=== PATIENT | female | born 1945 | race Hispanic/Latino ===

== ENCOUNTER 2020-01-29 09:58 | Emergency (ER) | payer MEDICARE, MEDICAID ==
[~2020-01-29] VITALS: Ht 154.9 cm; Wt 64.5 kg
[~2020-01-29 09:58] MED LIST: ADLT ASA LOW81 MG PO; CALCIUM600 M1 PO; CIPROFLOXACN500 MG PO; GLUCOPHAGE1000 MG; LISINOP/HCTZ1 TA2 PO; MEVACOR20 MG PO; NORVASC10 MG PO; ROBITUSSIN AC10 ML PO; VITAMIN D400 UNI3 PO; ZPAK PO
[2020-01-29] MEDS ORDERED: TOPROL XL25 M1 PO (10:55)
[2020-01-29 10:58] LABS: HEMOGLOBIN 12.6 g/dl (12.0-16.0); IMMATURE GRANULOCYTES 0.5 % (0.0-5.0); MEAN CELL VOLUME 90.3 fL CALC (80.0-100.0); MEAN CORPUSCULAR HGB 29.2 pG CALC (26.0-32.0); MEAN CORPUSCULAR HGB CONC 32.3 g/dL CAL (32.0-36.0); NEUT# 10.05 thou/uL (2.00-7.15); RED BLOOD COUNT 4.32 mill/uL (4.20-5.60); RED CELL DISTRI WIDTH 14.1 % (11.5-15.5)
[2020-01-29 11:01] LABS: GFR > 60 ML/MIN (>=60 (CALC)); GFR FOR AFR.AMER. > 60 ML/MIN (>=60 (CALC))
[2020-01-29 11:13] LABS: ALBUMIN 4.1 g/dL (3.2-5.0); ALKALINE PHOSPHATASE 105 u/l (38-126); ANION GAP 15 (6-22 (CALC)); BILIRUBIN, TOTAL 1.5 mg/dL (0.0-1.4); BUN 13 mg/dL (8-23); BUN/CREATININE RATIO 17 (12-20 (CALC)); CARBON DIOXIDE 27 mmol/l (22-30); CHLORIDE 97 mmol/l (95-108); CREATININE 0.7 mg/dL (0.5-1.0); GFR > 60 ML/MIN (>=60 (CALC)); GFR FOR AFR.AMER. > 60 ML/MIN (>=60 (CALC)); POTASSIUM 3.9 mmol/l (3.5-5.1); SGOT/AST 31 u/l (9-36); SODIUM 135 mmol/l (137-146); TOTAL PROTEIN 7.4 g/dL (6.3-8.2)
[2020-01-29 12:06] LABS: URINE BILIRUBIN - DIPSTICK NEGATIVE (NEGATIVE); URINE BLOOD DIPSTICK MODERATE (NEGATIVE); URINE COLOR YELLOW; URINE GLUCOSE - DIPSTICK NEGATIVE (NEGATIVE); URINE KETONE 15 mg/dL (NEGATIVE); URINE PROTEIN - DIPSTICK 100 mg/dL (NEG-TRACE); URINE UROBILINOGEN - DIPSTICK 0.2 E.U./dL (0.2)
[2020-01-29 12:12] LABS: URINE BACTERIA MANY hpf; URINE EPITHELIAL CELLS MODERATE EPI/hpf (0-FEW); URINE LEUK ESTERASE SMALL (NEGATIVE); URINE NITRITE - DIPSTICK POSITIVE (Negative)
[2020-01-29 13:19] VITALS: BP 136/63
--- NOTE | 2020-01-31 07:42 | NUR ---
PT URINE CX SHOWS ESBL E COLI. PRELIM BLOOD CX SHOWS GRAM - RODS IN 1 ANAEROBIC BOTTLE. PT TRANSFERRED TO [facility]. RESULTS CALLED TO NURSE JOHNSON AND FAXED TO [phone]
== END 2020-01-29 13:19 | disposition short-term general hospital (02) ==
LOC: ED 09:58
PROVIDERS: Family Medicine
DX: I21.4 Non-ST elevation (NSTEMI) myocardial infarction (principal); N39.0 Urinary tract infection, site not specified; E11.9 Type 2 diabetes mellitus without complications; I10 Essential (primary) hypertension; B96.20 Unspecified Escherichia coli [E. coli] as the cause of diseases classified elsewhere; Z16.12 Extended spectrum beta lactamase (ESBL) resistance; Z79.84 Long term (current) use of oral hypoglycemic drugs; Z20.828 Contact with and (suspected) exposure to other viral communicable diseases
CPT/HCPCS: J1644; Q9967

== ENCOUNTER 2021-04-23 12:49 | Emergency (ER) | payer MEDICARE, MEDICAID ==
[~2021-04-23] VITALS: Ht 154.9 cm; Wt 65.9 kg
[~2021-04-23 12:49] MED LIST changes: +TOPROL XL25 M1 PO
[2021-04-23 13:40] VITALS: BP 144/65
[2021-04-23 17:07] LABS: HEMATOCRIT 40.3 % (37.0-47.0); HEMOGLOBIN 12.6 g/dl (12.0-16.0); IMMATURE GRANULOCYTES 0.1 % (0.0-5.0); MEAN CELL VOLUME 94.6 fL CALC (80.0-100.0); MEAN CORPUSCULAR HGB 29.6 pG CALC (26.0-32.0); MEAN CORPUSCULAR HGB CONC 31.3 g/dL CAL (32.0-36.0); NEUT# 5.86 thou/uL (2.00-7.15); RED BLOOD COUNT 4.26 mill/uL (4.20-5.60); RED CELL DISTRI WIDTH 14.4 % (11.5-15.5)
[2021-04-23 17:11] LABS: ALBUMIN 4.3 g/dL (3.2-5.0); ALKALINE PHOSPHATASE 105 u/l (38-126); ANION GAP 13 (6-22 (CALC)); BILIRUBIN, TOTAL 0.7 mg/dL (0.0-1.4); BUN 24 mg/dL (8-23); BUN/CREATININE RATIO 26 (12-20 (CALC)); CARBON DIOXIDE 29 mmol/l (22-30); CHLORIDE 106 mmol/l (95-108); CREATININE 0.9 mg/dL (0.5-1.0); GFR > 60 ML/MIN (>=60 (CALC)); GFR FOR AFR.AMER. > 60 ML/MIN (>=60 (CALC)); POTASSIUM 4.5 mmol/l (3.5-5.1); SGOT/AST 20 u/l (9-36); SODIUM 144 mmol/l (137-146); TOTAL PROTEIN 8.9 g/dL (6.3-8.2)
[2021-04-23] MEDS ORDERED: DOXYCYCL HYC100 M4 PO (17:29)
== END 2021-04-23 18:00 | disposition home or self-care (01) ==
LOC: ED 12:49
PROVIDERS: Family Medicine
DX: J18.9 Pneumonia, unspecified organism (principal); I11.0 Hypertensive heart disease with heart failure; E11.9 Type 2 diabetes mellitus without complications; Z79.84 Long term (current) use of oral hypoglycemic drugs; Z20.822 Contact with and (suspected) exposure to COVID-19

== ENCOUNTER 2021-10-05 21:15 | Emergency (ER) | payer MEDICARE, MEDICAID ==
[~2021-10-05] VITALS: Ht 154.9 cm; Wt 63.0 kg
[~2021-10-05 21:15] MED LIST changes: +DOXYCYCL HYC100 M4 PO
[2021-10-05 21:31] VITALS: BP 192/74
[2021-10-05 21:46] VITALS: BP 179/68
[2021-10-05 21:49] LABS: URINE BILIRUBIN - DIPSTICK NEGATIVE (NEGATIVE); URINE BLOOD DIPSTICK SMALL (NEGATIVE); URINE COLOR YELLOW; URINE GLUCOSE - DIPSTICK NEGATIVE (NEGATIVE); URINE KETONE NEGATIVE (NEGATIVE); URINE PROTEIN - DIPSTICK NEGATIVE (NEG-TRACE); URINE SPECIFIC GRAVITY <=1.005; URINE UROBILINOGEN - DIPSTICK 0.2 E.U./dL (0.2)
[2021-10-05] MEDS ORDERED: DITROPAN5 MG/TA1 PO (21:49)
[2021-10-05 21:50] LABS: URINE LEUK ESTERASE LARGE (NEGATIVE); URINE NITRITE - DIPSTICK NEGATIVE (Negative)
[2021-10-05] MEDS ORDERED: XARELTO2.5 MG PO (21:53)
[2021-10-05] MEDS ORDERED: PIOGLITAZONE HC30 MG PO (21:54)
[2021-10-05 21:55] LABS: URINE BACTERIA FEW hpf; URINE SQUAMOUS EPITHELIAL CELL FEW EPI/hpf (0-FEW)
[2021-10-05] MEDS ORDERED: HYZAAR1 TAB PO (21:56)
[2021-10-05] MEDS ORDERED: ALENDRONATE SOD70 MG PO (21:57)
[2021-10-05 22:00] VITALS: BP 160/70
[2021-10-05 22:02] LABS: HEMATOCRIT 38.7 % (37.0-47.0); HEMOGLOBIN 12.1 g/dl (12.0-16.0); MEAN CELL VOLUME 92.1 fL CALC (80.0-100.0); MEAN CORPUSCULAR HGB 28.8 pG CALC (26.0-32.0); MEAN CORPUSCULAR HGB CONC 31.3 g/dL CAL (32.0-36.0); NEUT# 3.66 thou/uL (2.00-7.15); RED BLOOD COUNT 4.2 mill/uL (4.20-5.60); RED CELL DISTRI WIDTH 14.3 % (11.5-15.5)
[2021-10-05 22:13] LABS: ALBUMIN 4.3 g/dL (3.2-5.0); ALKALINE PHOSPHATASE 77 u/l (38-126); ANION GAP 12 (6-22 (CALC)); BILIRUBIN, TOTAL 0.6 mg/dL (0.0-1.4); BUN 20 mg/dL (8-23); BUN/CREATININE RATIO 21 (12-20 (CALC)); CARBON DIOXIDE 29 mmol/l (22-30); CHLORIDE 101 mmol/l (95-108); GFR FOR AFR.AMER. > 60 ML/MIN (>=60 (CALC)); GFR OTHER RACES 54 ML/MIN (>=60 (CALC)); SGOT/AST 21 u/l (9-36); SODIUM 137 mmol/l (137-146); TOTAL PROTEIN 7.6 g/dL (6.3-8.2)
[2021-10-05 22:15] VITALS: BP 156/70
[2021-10-05 22:30] VITALS: BP 157/67
[2021-10-05 22:35] VITALS: BP 157/67
== END 2021-10-05 22:45 | disposition home or self-care (01) ==
LOC: ED 21:15
PROVIDERS: Family Medicine
DX: U07.1 COVID-19 (principal); R05.9 Cough, unspecified; I10 Essential (primary) hypertension; E11.9 Type 2 diabetes mellitus without complications; R82.71 Bacteriuria; Z79.84 Long term (current) use of oral hypoglycemic drugs

== ENCOUNTER 2022-04-12 11:32 | Inpatient (IN) | payer MEDICARE, MEDICAID ==
[~2022-04-12] VITALS: Ht 154.9 cm; Wt 55.4 kg
[~2022-04-12 11:32] MED LIST changes: +ALENDRONATE SOD70 MG PO; +DITROPAN5 MG/TA1 PO; +HYZAAR1 TAB PO; +PIOGLITAZONE HC30 MG PO; +XARELTO2.5 MG PO
--- NOTE | 2022-04-12 11:32 | NUR ---
PT AMBULATES TO ROOM WITH DAUGHTER AT SIDE
[2022-04-12 12:19] LABS: BASO% 0.1 % (0-3); EOS% 0.1 % (0-8); HEMATOCRIT 38.2 % (37.0-47.0); HEMOGLOBIN 12.6 g/dl (12.0-16.0); IMMATURE GRANULOCYTES 0.4 % (0.0-5.0); LYMPH% 6.7 % (15-41); MEAN CELL VOLUME 92.3 fL CALC (80.0-100.0); MEAN CORPUSCULAR HGB 30.4 pG CALC (26.0-32.0); MONO% 2.3 % (2-13); NEUT# 14.49 thou/uL (2.00-7.15); NEUT% 90.4 % (42-76); RED BLOOD COUNT 4.14 mill/uL (4.20-5.60); RED CELL DISTRI WIDTH 14.1 % (11.5-15.5)
[2022-04-12 12:29] LABS: ALBUMIN 3.9 g/dL (3.2-5.0); ANION GAP 15 (6-22 (CALC)); CARBON DIOXIDE 26 mmol/l (22-30); CHLORIDE 101 mmol/l (95-108); POTASSIUM 3.7 mmol/l (3.5-5.1); SGOT/AST 30 u/l (9-36); SODIUM 138 mmol/l (137-146); TOTAL PROTEIN 8.1 g/dL (6.3-8.2)
[2022-04-12 12:38] LABS: ALKALINE PHOSPHATASE 143 u/l (38-126); BILIRUBIN, TOTAL 1.3 mg/dL (0.0-1.4); BUN 35 mg/dL (8-23); BUN/CREATININE RATIO 19 (12-20 (CALC)); CREATININE 1.8 mg/dL (0.5-1.0); GFR FOR AFR.AMER. 33 ML/MIN (>=60 (CALC)); GFR OTHER RACES 27 ML/MIN (>=60 (CALC))
--- NOTE | 2022-04-12 13:09 | NUR ---
IN ROOM TO SPEAK TO PT
[2022-04-12] MEDS ORDERED: XARELTO2.5 MG PO (14:48)
--- NOTE | 2022-04-12 14:55 | NUR ---
PT AMBULATES TO BATHROOM
--- NOTE | 2022-04-12 15:50 | NUR ---
Admission Note Report Given to: JEANA DASILVA Transported by: Wheelchair X Stretcher Transported with: X Nurse Transporter X Patent IV O2 X Medical Technologist Prn Location: ICU X MS2 TO ROOM 262
[2022-04-12 15:51] VITALS: BP 127/64
[2022-04-12 16:15] VITALS: BP 127/64
--- NOTE | 2022-04-12 16:32 | NUR ---
RCD REPORT FROM ED AT BEDSIDE, PT IS HERE FOR PNA, PT IS ON RA, LUNGS ARE DIMINISHED, O2 VITAL IS 93, PT IS WEAK WHILE AMBULATING, PT AMBULATED FROM THE STRETCHER TO THE BED, PT IS A&OX3, DAUGHTER IS AT BEDSIDE TRANSLATING, PT PULSES ARE PALPABLE, PT IS NOT RUNNING A FEVER, BED IS IN LOWEST POSITION, CALL LIGHT AT BEDSIDE
[2022-04-12 16:43] VITALS: BP 127/64
[2022-04-12 19:10] VITALS: BP 128/62
--- NOTE | 2022-04-12 19:40 | NUR ---
PT IN BED WATCHING TV. FAMILY AT BEDSIDE. DENIES PAIN OR DISCOMFORT. LUNG SOUNDS ARE CRACKLES BILATERAL. BREATHING UNLABORED. ASSESMENT COMPLETED. PT A&O ABLE TO MAKE NEEDS KNOW. CALL LIGHT IN REACH AND BED IN LOWEST POSITION.
[2022-04-12 23:54] VITALS: BP 131/62
--- NOTE | 2022-04-13 00:50 | NUR ---
PT IN BED RESTING BREATHING IS EVEN AND UNLABORED. NO S/S OF DISTRESS NOTED. PT REPORTS PAIN TO L SIDE OF CHEST WHEN COUGHING, DR BILLS NOTOFIED AND ORDER OXYCODONE 5MG Q4H PRN. MAR UPDATED. CALL LIGHT IN REACH AND BED IN LOWEST POSITION.
[2022-04-13 04:35] VITALS: BP 125/61
--- NOTE | 2022-04-13 04:43 | NUR ---
PT RESTING IN BED WITH EYES CLOSED, BREATHING EVEN AND UNALBORED. NO S/S OF DISTRESS NOTED. CALL LIGHT IN REACH AND BED IN LOWEST POSITION.
[2022-04-13 05:21] LABS: MEAN CELL VOLUME 92.2 fL CALC (80.0-100.0); MEAN CORPUSCULAR HGB 30.7 pG CALC (26.0-32.0); MEAN CORPUSCULAR HGB CONC 33.3 g/dL CAL (32.0-36.0); RED BLOOD COUNT 3.58 mill/uL (4.20-5.60); RED CELL DISTRI WIDTH 14.2 % (11.5-15.5)
[2022-04-13 05:42] LABS: BILIRUBIN, TOTAL 0.9 mg/dL (0.0-1.4); CREATININE 1.4 mg/dL (0.5-1.0); POTASSIUM 3.4 mmol/l (3.5-5.1)
[2022-04-13 05:48] LABS: TOTAL PROTEIN 6.2 g/dL (6.3-8.2)
[2022-04-13 07:40] VITALS: BP 130/64
--- NOTE | 2022-04-13 07:42 | NUR ---
PT RESTING IN LOW FOWLERS POSITION. PT A/OX ASSESSMENT COMPLETED. PT HEART RHYTHM ON TELE. RESPIRATION ON ROOM AIR. PT IV SITE NOTED TO RAC 20G S.L PT DENIES ADDITIONAL NEEDSA THE TIME. ALL SAFETY PRECAUTIONS IN PLACE WITH CALL LIGHT IN REACH. FAMILY AT BEDSIDE.
[2022-04-13 10:45] VITALS: BP 145/65
--- NOTE | 2022-04-13 12:09 | NUR ---
PT RESTING IN SEMI FOWLERS POSITION,PT DENIES ADDITIONAL NEEDS AT THE TIME.
[2022-04-13 14:28] VITALS: BP 148/63
--- NOTE | 2022-04-13 15:59 | NUR ---
PT ASSISTED TO BATHROOM. PT 1 ASSIST. PT SITTING NOW IN SEMI FOWLERS POSITION. PT DENIES ADDITIONAL NEEDS AT THE TIME.
[2022-04-13 18:43] VITALS: BP 132/53
[2022-04-14] VITALS (8 sets, daily range): BP systolic 140–167; BP diastolic 60–71
--- NOTE | 2022-04-14 04:29 | NUR ---
PT HAD AN UNEVENTFUL NIGHT. PT IS ALERT AND ORIENTED. PT IS AFEBRILE. VSS. PT HAS BEEN MEDICATED FOR PAIN. PT DENIES SOB. ALL SAFETY MEASURES ARE IN PLACE. CALL LIGHT AND PERSONAL OBJECTS ARE CLOSE TO PT. FAMILY MEMBER IS AT BEDSIDE. WILL CONTINUE TO MONITOR PT.
--- NOTE | 2022-04-14 08:00 | NUR ---
PT RESTING IN SEMI FOWLERS POSITION. PT A/OX3 ASSESSMENT AND VS COMPLETED. HEART RHYTHM ON TELE RESPIRATONS ON ROOM AIR. IV SITE NOTED. PT BP HIGH PROVIDER INFORMED .PT DENIES ADDITIONAL NEEDS AT THE TIME ALL SAFETY PRECAUTIONS IN PLACE CALL LIGHT INREACH.
[2022-04-14 08:29] LABS: BASO% 0.1 % (0-3); EOS% 0.3 % (0-8); HEMATOCRIT 32.9 % (37.0-47.0); IMMATURE GRANULOCYTES 0.8 % (0.0-5.0); LYMPH% 10.7 % (15-41); MEAN CELL VOLUME 91.4 fL CALC (80.0-100.0); MEAN CORPUSCULAR HGB 30.6 pG CALC (26.0-32.0); MEAN CORPUSCULAR HGB CONC 33.4 g/dL CAL (32.0-36.0); MONO% 4.1 % (2-13); NEUT# 8.75 thou/uL (2.00-7.15); RED BLOOD COUNT 3.6 mill/uL (4.20-5.60); RED CELL DISTRI WIDTH 14.4 % (11.5-15.5)
[2022-04-14 08:33] LABS: ALBUMIN 3.2 g/dL (3.2-5.0); ALKALINE PHOSPHATASE 130 u/l (38-126); ANION GAP 15 (6-22 (CALC)); BILIRUBIN, TOTAL 0.6 mg/dL (0.0-1.4); BUN 22 mg/dL (8-23); BUN/CREATININE RATIO 26 (12-20 (CALC)); CARBON DIOXIDE 27 mmol/l (22-30); CHLORIDE 104 mmol/l (95-108); CREATININE 0.8 mg/dL (0.5-1.0); GFR FOR AFR.AMER. > 60 ML/MIN (>=60 (CALC)); GFR OTHER RACES > 60 ML/MIN (>=60 (CALC)); POTASSIUM 3.6 mmol/l (3.5-5.1); SGOT/AST 27 u/l (9-36); SODIUM 143 mmol/l (137-146); TOTAL PROTEIN 6.3 g/dL (6.3-8.2)
--- NOTE | 2022-04-14 12:25 | NUR ---
PT NEW IV ESTABLISHED TO RFA. S.L
--- NOTE | 2022-04-14 16:13 | NUR ---
PT DENIES ADDITIONAL NEEDS AT THE TIME. SAFETY PRECAUTIONS IN PLACE.
--- NOTE | 2022-04-14 20:00 | NUR ---
RECEIVED REPORT FROM NURSE CHERYL, PATIENT RESTING IN BED, WATCHING TV, DAUGHETR IN ROOM, HAS SALINE LOCK ON RFA G 20 PATENT FLUSHES WELL, REMAINS ON TELEMETRY, NOTED CRACKLE ON LUNG BASE, ACTIVE BOWEL SOUNDS, NON PRODUCTIVE COUGH, EXERTIONAL DYSPNEA NOTED, CALL LIGHT IN REACJH.
--- NOTE | 2022-04-15 00:43 | NUR ---
PATIENT HOOKED O2 @ 2LPM VIA NC, PATIENT COUGHING SPO2 @ 87-88% ON RA.
[2022-04-15 03:07] VITALS: BP 141/63
--- NOTE | 2022-04-15 03:58 | NUR ---
PATIENT APPEARS TO BE SLEEPING WITH EYES CLOSED,REMAINS ON O2 @ 2LPM VIA NC, NOT IN DISTRESS, DAUGHTER IN ROOM.CALL LIGHT IN REACH.
[2022-04-15 05:48] LABS: BASO% 0.2 % (0-3); EOS% 1.2 % (0-8); HEMATOCRIT 30.3 % (37.0-47.0); HEMOGLOBIN 10.1 g/dl (12.0-16.0); IMMATURE GRANULOCYTES 1.1 % (0.0-5.0); LYMPH% 20.8 % (15-41); MEAN CELL VOLUME 92.9 fL CALC (80.0-100.0); MEAN CORPUSCULAR HGB CONC 33.3 g/dL CAL (32.0-36.0); MONO% 5.3 % (2-13); NEUT# 6.29 thou/uL (2.00-7.15); NEUT% 71.4 % (42-76); RED BLOOD COUNT 3.26 mill/uL (4.20-5.60); RED CELL DISTRI WIDTH 14.5 % (11.5-15.5)
[2022-04-15 06:10] LABS: ALKALINE PHOSPHATASE 101 u/l (38-126); ANION GAP 9 (6-22 (CALC)); BILIRUBIN, TOTAL 0.5 mg/dL (0.0-1.4); BUN 15 mg/dL (8-23); BUN/CREATININE RATIO 21 (12-20 (CALC)); CARBON DIOXIDE 30 mmol/l (22-30); CHLORIDE 103 mmol/l (95-108); CREATININE 0.7 mg/dL (0.5-1.0); GFR FOR AFR.AMER. > 60 ML/MIN (>=60 (CALC)); GFR OTHER RACES > 60 ML/MIN (>=60 (CALC)); MAGNESIUM 1.3 mg/dL (1.6-2.3); POTASSIUM 3.5 mmol/l (3.5-5.1); SGOT/AST 26 u/l (9-36); SODIUM 138 mmol/l (137-146); TOTAL PROTEIN 6.5 g/dL (6.3-8.2)
[2022-04-15 06:26] VITALS: BP 147/70
--- NOTE | 2022-04-15 06:39 | NUR ---
REPEATED TEMPERATURE ORALLY TEMP 98.1, WILL INFORM DAY NURSE.
--- NOTE | 2022-04-15 09:01 | NUR ---
pt on 2L NC st 93%
[2022-04-15 10:01] VITALS: BP 142/62
--- NOTE | 2022-04-15 15:25 | NUR ---
PT ASSESSED. VS STABLE. NO C/O CP OR SOB W/O EXERTION. NO S/S OF DISTRESS. BED IN LOW, LOCKED POSITION. CALL PERRY WITHIN REACH. WILL CONTINUE TO MONITOR.
[2022-04-15 15:56] VITALS: BP 154/62
[2022-04-15 19:01] VITALS: BP 137/60
--- NOTE | 2022-04-15 20:00 | NUR ---
RECEIVED REPORT FROM JEANA AU. PT SITTING ON BED HIGH FOWLERS. DAUGHTER AT BEDSIDE. PT A&O X3. EVEN AND UNLABORED RESPIRATIONS; DIMINISHED LUNG SOUNDS UPON AUSCULTATION. O2 @ 2L VIA NASAL CANNULA IN PLACE. TELEMETRY IN PLACE. IV SITE HEALTHY AND PATENT. ACTIVE BOWEL SOUNDS X4 QUADRANTS. SAFETY PRECAUTIONS IN PLACE WITH CALL LIGHT IN REACH.
--- NOTE | 2022-04-16 | NUR ---
PT ASSISTED TO BATHROOM, PT BACK IN BED. FAMILY MEMBER AT BEDSIDE. NO DISTRESS NOTED. PT DENIES PAIN AT THIS TIME. SAFETY PRECAUTIONS IN PLACE WITH CALL LIGHT IN REACH.
[2022-04-16 00:23] VITALS: BP 141/61
--- NOTE | 2022-04-16 04:00 | NUR ---
PT RESTING WITH EYES CLOSED. FAMILY MEMBER AT BEDSIDE. NO DISTRESS OR PAIN NOTED. IV SITE HEALTHY AND PATENT. SAFETY PRECAUTIOS IN PLACE WITH CALL LIGHT IN REACH.
[2022-04-16 04:22] VITALS: BP 128/62
[2022-04-16 05:08] LABS: BASO% 0.3 % (0-3); EOS% 2.9 % (0-8); HEMATOCRIT 31.9 % (37.0-47.0); HEMOGLOBIN 10.4 g/dl (12.0-16.0); IMMATURE GRANULOCYTES 1.5 % (0.0-5.0); MEAN CELL VOLUME 93.5 fL CALC (80.0-100.0); MEAN CORPUSCULAR HGB 30.5 pG CALC (26.0-32.0); MEAN CORPUSCULAR HGB CONC 32.6 g/dL CAL (32.0-36.0); MONO% 3.8 % (2-13); NEUT# 5.78 thou/uL (2.00-7.15); NEUT% 72.5 % (42-76); RED BLOOD COUNT 3.41 mill/uL (4.20-5.60); RED CELL DISTRI WIDTH 14.2 % (11.5-15.5)
[2022-04-16 05:20] LABS: ALBUMIN 3.1 g/dL (3.2-5.0); ALKALINE PHOSPHATASE 96 u/l (38-126); ANION GAP 10 (6-22 (CALC)); BILIRUBIN, TOTAL 0.5 mg/dL (0.0-1.4); BUN 10 mg/dL (8-23); BUN/CREATININE RATIO 16 (12-20 (CALC)); CARBON DIOXIDE 30 mmol/l (22-30); CHLORIDE 103 mmol/l (95-108); CREATININE 0.6 mg/dL (0.5-1.0); GFR FOR AFR.AMER. > 60 ML/MIN (>=60 (CALC)); GFR OTHER RACES > 60 ML/MIN (>=60 (CALC)); MAGNESIUM 1.4 mg/dL (1.6-2.3); POTASSIUM 3.6 mmol/l (3.5-5.1); SGOT/AST 25 u/l (9-36); SODIUM 140 mmol/l (137-146); TOTAL PROTEIN 6.5 g/dL (6.3-8.2)
[2022-04-16 06:40] VITALS: BP 142/62
[2022-04-16 10:00] VITALS: BP 139/61
[2022-04-16 14:15] VITALS: BP 113/47
[2022-04-16] MEDS ORDERED: LEVAQUIN750 M1 PO (14:54)
[2022-04-16] MEDS ORDERED: LASIX20 MG PO (15:02)
[2022-04-16 19:05] VITALS: BP 114/47
--- NOTE | 2022-04-16 20:00 | NUR ---
PT SITTING ON RECLINER: A&O X3, [place] SPEAKING ONLY. DAUGHTER AT BEDSIDE. EVEN AND UNLABORED RESPIRATIONS; WHEWZING THROUGHTOUT. O2 @ 2L VIA NASAL CANNULA IN PLACE. TELEMETRY IN PLACE WITH LAST READING SR-72. IV SITE HEALTHY AND PATENT. ACTIVE BOWEL SOUNDS X4 QUADRANTS. SAFETY PRECAUTIONS IN PLACE WITH CALL LIGHT IN REACH.
--- NOTE | 2022-04-17 | NUR ---
PT RESTING ON BED WITH EYES CLOSED. DAUGHTER AT BEDSIDE. NO DISTRESS OR PAIN NOTED. O2 @ 2L VIA NASAL CANNULA IN PLACE. NO NEEDS AT THIS TIME. SAFETY PRECAUTIONS IN LACE WITH CALL LIGHT IN REACH.
[2022-04-17 00:33] VITALS: BP 148/60
--- NOTE | 2022-04-17 02:11 | NUR ---
PT C/O HEADACHE, LEVEL 7/10; ADMINISTERED PAIN MED PER EMAR. SAFETY PRECAUTIONS IN PLACE WITH CALL LIGHT IN REACH.
--- NOTE | 2022-04-17 04:00 | NUR ---
PT RESTING WITH EYES CLOSED. DAUGHTER AT BEDSIDE. NO DISTRESS OR PAIN NOTED. O2 @ 2L VIA NASAL CANNULA IN PLACE. NO NEEDS AT THIS TIME. SAFETY PRECAUTIONS IN PLACE WITH CALL LIGHT IN REACH.
[2022-04-17 04:33] VITALS: BP 135/61
[2022-04-17 06:50] VITALS: BP 114/51
--- NOTE | 2022-04-17 08:05 | NUR ---
PATIENT AWAKE ALERT AND ORIENTED. VSS. ASSESSMENT COMPLETE. PATIENT PRIMARILY [place] SPEAKING BUT UNDERSTANDS VERY LITTLE [place]. INSULIN HELD, BLOOD GLUCOSE WITHIN NORMAL LIMITS. NON PRODUCTIVE, WET COUGH NOTED. NO DISTRESS NOTED, DENIES PAIN AT THIS TIME. CALL LIGHT WITHIN REACH.
[2022-04-17 10:29] VITALS: BP 124/61
--- NOTE | 2022-04-17 15:25 | NUR ---
PATIENT DISCHARGED HOME. INSTRUCTIONS AND TEACHINGS PROVIDED TO PATIENT AND DAUGHTER, NO CONCERNS EXPRESSED. DISCONTINUED TELEMETRY AND IV ACCESS FROM RAC #20, CATHETER INTACT. PATIENT LEFT VIA WHEELCHAIR, STABLE AT THIS TIME.
== END 2022-04-17 15:22 | disposition home health service (06) | DRG 871 ==
LOC: ED 11:32 → ED-I 14:21 → ED 14:35 → MS2 14:36
PROVIDERS: Emergency Medicine; Nurse Practitioner Family; ADMIT Internal Medicine; ATTEND Internal Medicine
DX: A41.9 Sepsis, unspecified organism (principal); I50.31 Acute diastolic (congestive) heart failure; J18.9 Pneumonia, unspecified organism; J96.01 Acute respiratory failure with hypoxia; N17.9 Acute kidney failure, unspecified; R65.20 Severe sepsis without septic shock; E11.9 Type 2 diabetes mellitus without complications; I11.0 Hypertensive heart disease with heart failure; M19.90 Unspecified osteoarthritis, unspecified site; E78.5 Hyperlipidemia, unspecified; Z87.01 Personal history of pneumonia (recurrent); Z79.84 Long term (current) use of oral hypoglycemic drugs; Z20.822 Contact with and (suspected) exposure to COVID-19
CPT/HCPCS: J3475

== ENCOUNTER 2023-01-21 02:25 | Emergency (ER) | payer MEDICARE, MEDICAID ==
[~2023-01-21] VITALS: Ht 152.4 cm; Wt 56.3 kg
[2023-01-21] VITALS (10 sets, daily range): BP systolic 112–221; BP diastolic 52–83
[~2023-01-21 02:25] MED LIST changes: +LASIX20 MG PO; +LEVAQUIN750 M1 PO
[2023-01-21 03:41] LABS: BASO% 0.6 % (0-3); EOS% 4.8 % (0-8); HEMATOCRIT 37.8 % (37.0-47.0); IMMATURE GRANULOCYTES 0.1 % (0.0-5.0); LYMPH% 30.2 % (15-41); MEAN CELL VOLUME 92.4 fL CALC (80.0-100.0); MEAN CORPUSCULAR HGB 29.3 pG CALC (26.0-32.0); MEAN CORPUSCULAR HGB CONC 31.7 g/dL CAL (32.0-36.0); MONO% 3.4 % (2-13); NEUT# 4.09 thou/uL (2.00-7.15); NEUT% 60.9 % (42-76); RED BLOOD COUNT 4.09 mill/uL (4.20-5.60); RED CELL DISTRI WIDTH 14.3 % (11.5-15.5)
[2023-01-21 03:47] LABS: ALBUMIN 4.1 g/dL (3.2-5.0); ALKALINE PHOSPHATASE 87 u/l (38-126); ANION GAP 11 (6-22 (CALC)); BILIRUBIN, TOTAL 1.1 mg/dL (0.02-1.3); BUN 17 mg/dL (8-23); BUN/CREATININE RATIO 23 (12-20 (CALC)); CARBON DIOXIDE 26 mmol/l (22-30); CHLORIDE 105 mmol/l (95-108); CREATININE 0.7 mg/dL (0.5-1.0); GFR FOR AFR.AMER. > 60 ML/MIN (>=60 (CALC)); GFR OTHER RACES > 60 ML/MIN (>=60 (CALC)); POTASSIUM 4.4 mmol/l (3.5-5.1); SGOT/AST 39 u/l (9-36); SODIUM 139 mmol/l (137-146); TOTAL PROTEIN 7.2 g/dL (6.3-8.2)
[2023-01-21 03:56] LABS: ACT PARTIAL THROMBO TIME 26.6 SECONDS (20.0-32.5)
[2023-01-21] MEDS ORDERED: VENTOLIN HFA108 MCG IN (04:24)
[2023-01-21] MEDS ORDERED: ADVAIR DISK1 PO (04:25)
[2023-01-21] MEDS ORDERED: MACRODANTIN100 MG PO (04:27)
[2023-01-21] MEDS ORDERED: CLONIDINE0.2 MG PO (04:30)
== END 2023-01-21 06:12 | disposition home or self-care (01) ==
LOC: ED 02:25
PROVIDERS: Emergency Medicine
DX: I16.0 Hypertensive urgency (principal); I10 Essential (primary) hypertension; E11.9 Type 2 diabetes mellitus without complications; I25.10 Atherosclerotic heart disease of native coronary artery without angina pectoris; E78.5 Hyperlipidemia, unspecified; Z79.01 Long term (current) use of anticoagulants; Z79.84 Long term (current) use of oral hypoglycemic drugs; Z20.822 Contact with and (suspected) exposure to COVID-19